=== PATIENT | female | born 1955 | race Caucasian/White ===

== ENCOUNTER 2022-09-19 05:58 | Day surgery (SDC) | payer OTHER ==
[2022-09-17 13:43] VITALS: BMI 22.7
[2022-09-19] MEDS ORDERED: ONDANSETRON 4 MG/2 ML VIAL ONE (07:13)
[2022-09-19] MEDS ORDERED: DEXAMETHASONE SOD PHOSPHATE 4 MG/1 ML VIAL ONE (07:13)
[2022-09-19] MEDS ORDERED: PROPOFOL 40 ML ONE (07:13)
[2022-09-19] MEDS ORDERED: LIDOCAINE HCL/PF 2% SDV 5ML VIAL ONE ×2 (07:13→07:27)
[2022-09-19] MEDS ORDERED: ceFAZolin SODIUM 1 GM VIAL ONE (07:14)
[2022-09-19] MEDS ORDERED: LIDOCAINE HCL 2% 100 MG/5 ML DISP.SYRIN ONE (07:15)
[2022-09-19] MEDS ORDERED: MIDAZOLAM HCL 2 MG/2 ML SINGLE DOSE VIAL ONE (07:25)
[2022-09-19] MEDS ORDERED: SUCCINYLCHOLINE CHLORIDE 200 MG/10 ML SYRINGE ONE (07:26)
[2022-09-19] MEDS ORDERED: SEVOFLURANE 250 ML BTL ONE (07:27)
[2022-09-19] MEDS ORDERED: BUPIVACAINE HCL/PF 0.25% (2.5MG/ML) 10 ML VIAL ONE (07:28)
[2022-09-19] MEDS ORDERED: EPINEPHrine 1:1,000 1,000 MCG/ML ML ONE (07:29)
[2022-09-19] MEDS ORDERED: oxyCODONE HCL 5 MG TABLET PO PRN (08:49)
[2022-09-19] MEDS ORDERED: ONDANSETRON 4 MG/2 ML VIAL IVPUSH PRN (08:49)
[2022-09-19] MEDS ORDERED: FENTANYL CITRATE/PF 50 MCG/ML VIAL ONE ×3 (08:51→09:16)
[2022-09-19] MEDS ORDERED: LACTATED RINGERS SOLUTION 1,000 ML IV SCH (09:00)
[2022-09-19] MEDS ORDERED: HALOPERIDOL LACTATE 5 MG/ML IM ONE (10:15)
[2022-09-19] MEDS ORDERED: oxyCODONE HCL 5 MG TABLET PO ONE ×2 (10:30→10:45)
[2022-09-19 10:31] VITALS: RESP 18; TEMP 98.4
[2022-09-19] MEDS ORDERED: oxyCODONE HCL 5 MG TABLET ONE (10:45)
[2022-09-19 12:19] VITALS: BP 118/71; PULSE 77
== END 2022-09-19 12:19 | disposition home or self-care (01) ==
LOC: FASU 05:58
PROVIDERS: ATTEND Orthopaedic Surgery Sports Medicine
PROC: 0SBD4ZZ Excision of Left Knee Joint, Percutaneous Endoscopic Approach (ICD-10-PCS; 2022-09-19)
PROC: 0SBD4ZX Excision of Left Knee Joint, Percutaneous Endoscopic Approach, Diagnostic (ICD-10-PCS; 2022-09-19)
PROC: 0SBD4ZZ Excision of Left Knee Joint, Percutaneous Endoscopic Approach (ICD-10-PCS; principal; 2022-09-19 08:07)
DX: S83.242A Other tear of medial meniscus, current injury, left knee, initial encounter (principal); S83.282A Other tear of lateral meniscus, current injury, left knee, initial encounter; X58.XXXA Exposure to other specified factors, initial encounter; Y93.9 Activity, unspecified; Y92.9 Unspecified place or not applicable
CPT/HCPCS: 88304-TC; 94760; 97116-GP